=== PATIENT | female | born 1970 | race Caucasian/White ===

== ENCOUNTER 2016-09-18 11:06 | Emergency (ER) | payer BC ==
[~2016-09-18] VITALS: Ht 165.1 cm; Wt 72.6 kg
[~2016-09-18 11:06] MED LIST: ADVAIR 500/501 DISK IH; BIOTIN PLUS KE1 EACH PO; BUTALB-APAP-CA1 EACH PO; CELEXA10 MG; CELEXA40 MG PO; ESTRADIOL0.5 MG PO; Ecotrin PO; LEXAPRO10 MG PO; LISINOPRIL5 MG PO; MELATONIN5 M1 PO; METOPROLOL SUCC50 MG PO; MONTELUKAST SOD10 MG PO; MOTRIN600 MG PO; MULTIVITAMIN; NORCO 5/3251 TABLET PO; PRENATAL TABLE1 EAC3 PO; PROAIR HFA8.5 GM IH; SINGULAIR10 MG PO; VICODIN 5-3001 EACH PO; ZYRTEC10 M3 PO
[2016-09-18 11:48] LABS: HEMATOCRIT 36.5 % (36.0-46.0); MCH 30.4 PG (29.0-34.0); MCHC 35.6 G/DL (30.0-36.0); MCV 85.3 FL (83-99); MEAN PLAT.VOLUME 8.7 uM^3 (9.5-12.4); PLATELET COUNT 280 K/uL (156-360); RBC DIS.WIDTH-SD 36.3 % (39-53); RED BLOOD COUNT 4.28 M/uL (3.80-5.20)
[2016-09-18 12:16] LABS: ANION GAP 8 MEQ/L (2-14); CHLORIDE 104 MEQ/L (99-109); POTASSIUM 3.7 MEQ/L (3.7-5.4); SAMPLE HEMOLYSIS CHECK 0; SAMPLE ICTERIC CHECK 0; SAMPLE LIPEMIA CHECK 0; SODIUM 139 MEQ/L (136-147)
[2016-09-18 12:21] LABS: GFR ESTIMATE (CALCULATED) > 59 mL/min/; GLUCOSE 123 mg/dL (70-99); UREA NITROGEN (BUN) 13 mg/dL (9-23)
[2016-09-18 12:24] LABS: TROP-I INTERPRETATION NEGATIVE; TROPONIN-I < 0.01 ng/mL (0.0-0.30)
[2016-09-18 15:19] LABS: TROP-I INTERPRETATION NEGATIVE; TROPONIN-I < 0.01 ng/mL (0.0-0.30)
[2016-09-18 15:57] VITALS: BP 145/87
== END 2016-09-18 16:01 | disposition home or self-care (01) ==
LOC: EME 11:06
PROVIDERS: Physician Assistant
DX: R07.9 Chest pain, unspecified (principal); I10 Essential (primary) hypertension; Z88.0 Allergy status to penicillin; Z88.6 Allergy status to analgesic agent
CPT/HCPCS: 71020; 80048; 84484; 85027; 85379; 93005; 99281; 99284

== ENCOUNTER 2016-09-29 09:27 | Day surgery (SDC) | payer BC ==
[~2016-09-29] VITALS: Ht 165.1 cm; Wt 70.0 kg
[~2016-09-29 09:27] MED LIST changes: +ASPIRIN81 M2 PO; +HYZAAR 100-21 TABLET PO; +NITROSTAT0.4 MG SL
== END 2016-09-29 19:15 | disposition home or self-care (01) ==
LOC: CATH 09:27
DX: R07.89 Other chest pain (principal); I25.10 Atherosclerotic heart disease of native coronary artery without angina pectoris; I10 Essential (primary) hypertension; E11.9 Type 2 diabetes mellitus without complications; J45.909 Unspecified asthma, uncomplicated; E66.9 Obesity, unspecified; Z68.25 Body mass index [BMI] 25.0-25.9, adult; F41.9 Anxiety disorder, unspecified; Z82.49 Family history of ischemic heart disease and other diseases of the circulatory system; Z83.3 Family history of diabetes mellitus; Z80.1 Family history of malignant neoplasm of trachea, bronchus and lung; Z82.5 Family history of asthma and other chronic lower respiratory diseases; Z88.8 Allergy status to other drugs, medicaments and biological substances; Z88.0 Allergy status to penicillin; Z88.1 Allergy status to other antibiotic agents; Z88.5 Allergy status to narcotic agent
CPT/HCPCS: 85347; C1769; C1887; J0153; J1644; J2250; J3010; J7050

== ENCOUNTER 2016-12-31 10:30 | Observation (INO) | payer BC, OTHER ==
[~2016-12-31] VITALS: Ht 165.1 cm; Wt 77.6 kg
[2016-12-31 12:03] LABS: MCH 29.5 PG (29.0-34.0); MCHC 34.9 G/DL (30.0-36.0); MCV 84.6 FL (83-99); MEAN PLAT.VOLUME 8.7 uM^3 (9.5-12.4); PLATELET COUNT 276 K/uL (156-360); RBC DIS.WIDTH-CV 12.1 % (11.8-14.6); RBC DIS.WIDTH-SD 36.9 % (39-53); RED BLOOD COUNT 4.61 M/uL (3.80-5.20)
[2016-12-31 12:11] LABS: CHLORIDE 104 mEq/L (99-109); POTASSIUM 4.1 mEq/L (3.7-5.4); SODIUM 138 mEq/L (136-147)
[2016-12-31 12:13] LABS: GLUCOSE 114 mg/dL (70-99)
[2016-12-31 12:14] LABS: ANION GAP 10 MEQ/L (2-14)
[2016-12-31 12:16] LABS: GFR ESTIMATE (CALCULATED) > 59 mL/min/
[2016-12-31 12:17] LABS: UREA NITROGEN (BUN) 10 mg/dL (9-23)
[2016-12-31 12:23] LABS: D-DIMER ELISA 0.24 mg/L FEU (< 0.57)
[2016-12-31 12:34] LABS: TROP-I INTERPRETATION NEGATIVE; TROPONIN-I < 0.01 ng/mL (0.0-0.30)
[2016-12-31] MEDS ORDERED: LO-DOSE ASPIRIN81 M2 PO (14:37)
[2016-12-31] MEDS ORDERED: ONE-A-DAY ESSE1 EAC1 PO (14:37)
[2016-12-31] MEDS ORDERED: ADVIL,NUPRIN,M200 MG PO (14:37)
[2016-12-31] MEDS ORDERED: TRIBENZOR 40-11 EAC1 PO (14:38)
[2016-12-31] MEDS ORDERED: CRESTOR20 MG PO (14:38)
[2016-12-31] MEDS ORDERED: IMITREX50 MG PO (14:38)
[2016-12-31 16:55] VITALS: BP 179/97
[2016-12-31 18:21] LABS: TROP-I INTERPRETATION NEGATIVE; TROPONIN-I < 0.01 ng/mL (0.0-0.30)
[2016-12-31 20:00] VITALS: BP 126/68
[2016-12-31 23:57] VITALS: BP 116/71
[2017-01-01 01:47] LABS: TROP-I INTERPRETATION NEGATIVE; TROPONIN-I < 0.01 ng/mL (0.0-0.30)
[2017-01-01 03:30] VITALS: BP 122/74
[2017-01-01 07:05] LABS: MCH 29.8 PG (29.0-34.0); MCHC 34.1 G/DL (30.0-36.0); MCV 87.4 FL (83-99); MEAN PLAT.VOLUME 8.8 uM^3 (9.5-12.4); PLATELET COUNT 213 K/uL (156-360); RBC DIS.WIDTH-CV 12.4 % (11.8-14.6); RBC DIS.WIDTH-SD 39.3 % (39-53); RED BLOOD COUNT 3.89 M/uL (3.80-5.20); WHITE BLOOD COUNT 4.7 K/uL (4.1-10.2)
[2017-01-01 07:20] VITALS: BP 137/79
[2017-01-01 07:21] LABS: ANION GAP 9 MEQ/L (2-14); CHLORIDE 107 MEQ/L (99-109); GFR ESTIMATE (CALCULATED) > 59 mL/min/; GLUCOSE 107 mg/dL (70-99); HDL CHOLESTEROL 36 MG/DL (Desirable>=50); LDL CHOLESTEROL 148 mg/dL (Desirable<100); NON-HDL CHOLESTEROL 182 mg/dL (Desirable<160); POTASSIUM 3.8 MEQ/L (3.7-5.4); SAMPLE HEMOLYSIS CHECK 0; SAMPLE ICTERIC CHECK 0; SAMPLE LIPEMIA CHECK 0; SODIUM 140 MEQ/L (136-147); TOTAL CHOLESTEROL 218 mg/dL (Desirable<200); TRIGLYCERIDES 169 MG/DL (Normal: <150); UREA NITROGEN (BUN) 9 mg/dL (9-23)
[2017-01-01 07:22] LABS: Estimated Average Glucose 117 mg/dL (70-123); HEMOGLOBIN A1c (GLYCOHEMOGLOB) 5.7 % HGB (Below 5.7)
[2017-01-01 12:45] VITALS: BP 132/70
[2017-01-01 15:43] VITALS: BP 122/67
== END 2017-01-01 16:22 | disposition home or self-care (01) ==
LOC: EME 10:30 → EDOF 14:00 → 5WEST 14:00
PROVIDERS: Hospitalist; Internal Medicine; Physician Assistant
DX: R07.89 Other chest pain (principal); R20.0 Anesthesia of skin; E78.5 Hyperlipidemia, unspecified; K21.9 Gastro-esophageal reflux disease without esophagitis; Z79.82 Long term (current) use of aspirin; Z88.0 Allergy status to penicillin; I25.10 Atherosclerotic heart disease of native coronary artery without angina pectoris; I10 Essential (primary) hypertension; J45.909 Unspecified asthma, uncomplicated; F41.9 Anxiety disorder, unspecified; F32.9 Major depressive disorder, single episode, unspecified; R42 Dizziness and giddiness; R11.0 Nausea
CPT/HCPCS: 70450; 70551; 71020; 80048; 80061; 83036; 84484; 85027; 85379; 93005; 93306; 93880; 94640; 94640 76; 99202; 99281; 99285; G0378; J1644; J2270; J2405; J7030; J7040

== ENCOUNTER 2017-09-24 11:37 | Observation (INO) | payer BC ==
[~2017-09-24] VITALS: Ht 165.1 cm; Wt 78.3 kg
[~2017-09-24 11:37] MED LIST changes: +ADVIL,NUPRIN,M200 MG PO; +CRESTOR20 MG PO; +IMITREX50 MG PO; +LO-DOSE ASPIRIN81 M2 PO; +ONE-A-DAY ESSE1 EAC1 PO; +TRIBENZOR 40-11 EAC1 PO
[2017-09-24 12:07] LABS: HEMOGLOBIN 13.6 G/DL (11.9-15.5); MCH 31.3 PG (29.0-34.0); MCHC 36.8 G/DL (30.0-36.0); MCV 85.1 FL (83-99); PLATELET COUNT 260 K/uL (156-360); RBC DIS.WIDTH-CV 12.1 % (11.8-14.6); RBC DIS.WIDTH-SD 37.2 % (39-53); RED BLOOD COUNT 4.35 M/uL (3.80-5.20); WHITE BLOOD COUNT 6.6 K/uL (4.1-10.2)
[2017-09-24 12:19] LABS: CHLORIDE 99 mEq/L (99-109); POTASSIUM 3.7 mEq/L (3.7-5.4); SODIUM 140 mEq/L (136-147)
[2017-09-24 12:20] LABS: GLUCOSE 254 mg/dL (70-99)
[2017-09-24 12:24] LABS: CREATININE 0.8 mg/dL (0.6-1.3); GFR ESTIMATE (CALCULATED) > 59 mL/min/
[2017-09-24 12:25] LABS: UREA NITROGEN (BUN) 16 mg/dL (9-23)
[2017-09-24 12:29] LABS: TROP-I INTERPRETATION NEGATIVE; TROPONIN-I < 0.01 ng/mL (0.0-0.30)
[2017-09-24] MEDS ORDERED: CHLORTHALIDONE25 MG PO (17:59)
[2017-09-24] MEDS ORDERED: CYANOCOBALAM1000 MCG PO (17:59)
[2017-09-24 19:16] LABS: TROP-I INTERPRETATION NEGATIVE; TROPONIN-I < 0.01 ng/mL (0.0-0.30)
[2017-09-24 19:24] VITALS: BP 154/80
[2017-09-24 23:44] VITALS: BP 132/82
[2017-09-25 01:02] LABS: TROP-I INTERPRETATION NEGATIVE; TROPONIN-I < 0.01 ng/mL (0.0-0.30)
[2017-09-25 03:53] VITALS: BP 123/68
[2017-09-25 06:27] LABS: CHLORIDE 99 MEQ/L (99-109); CREATININE 0.7 MG/DL (0.6-1.3); GFR ESTIMATE (CALCULATED) > 59 mL/min/; GLUCOSE 143 mg/dL (70-99); POTASSIUM 3.3 MEQ/L (3.7-5.4); SODIUM 140 MEQ/L (136-147); UREA NITROGEN (BUN) 12 mg/dL (9-23)
[2017-09-25 08:22] VITALS: BP 136/79
[2017-09-25 10:10] LABS: HEMOGLOBIN A1c (GLYCOHEMOGLOB) 6.6 % (Below 5.7)
[2017-09-25 11:49] VITALS: BP 131/70
[2017-09-25 14:48] VITALS: BP 126/74
== END 2017-09-25 16:03 | disposition home or self-care (01) ==
LOC: EME 11:37 → RME 11:37 → EDOF 16:38 → 5WEST 16:38 → EDOF 16:38 → ENRESERV 16:43 → 5WEST 19:18
PROVIDERS: Internal Medicine
DX: R07.89 Other chest pain (principal); R00.0 Tachycardia, unspecified; R11.0 Nausea; R94.31 Abnormal electrocardiogram [ECG] [EKG]; R42 Dizziness and giddiness; I25.10 Atherosclerotic heart disease of native coronary artery without angina pectoris; I10 Essential (primary) hypertension; R73.03 Prediabetes; E78.5 Hyperlipidemia, unspecified; J45.909 Unspecified asthma, uncomplicated; F41.9 Anxiety disorder, unspecified; F32.9 Major depressive disorder, single episode, unspecified; Z90.49 Acquired absence of other specified parts of digestive tract; Z90.710 Acquired absence of both cervix and uterus; Z88.0 Allergy status to penicillin; Z88.1 Allergy status to other antibiotic agents; Z88.5 Allergy status to narcotic agent
CPT/HCPCS: 71046; 71275; 80048; 82948; 83036; 83880; 84484; 85027; 93005; 94640; 99281; 99285; G0378; J1650; J2270; J2405; J7030

== ENCOUNTER 2018-03-12 08:40 | Day surgery (SDC) | payer BC ==
[~2018-03-12] VITALS: Ht 165.1 cm; Wt 73.0 kg
[~2018-03-12 08:40] MED LIST changes: +CATAPRES-TTS 11 EACH TD; +CHLORTHALIDONE25 MG PO; +CYANOCOBALAM1000 MCG PO; +METFORMIN HCL500 M1 PO; +METOPROLOL SUC200 MG PO
== END 2018-03-12 17:15 | disposition home or self-care (01) ==
LOC: CATH 08:40
PROVIDERS: Internal Medicine Interventional Cardiology
PROC: 4A023N7 Measurement of Cardiac Sampling and Pressure, Left Heart, Percutaneous Approach (ICD-10-PCS; principal; 2018-03-12)
PROC: B2111ZZ Fluoroscopy of Multiple Coronary Arteries using Low Osmolar Contrast (ICD-10-PCS; principal; 2018-03-12)
PROC: B2151ZZ Fluoroscopy of Left Heart using Low Osmolar Contrast (ICD-10-PCS; principal; 2018-03-12)
PROC: B4161ZZ Fluoroscopy of Right Renal Artery using Low Osmolar Contrast (ICD-10-PCS; principal; 2018-03-12)
PROC: B4171ZZ Fluoroscopy of Left Renal Artery using Low Osmolar Contrast (ICD-10-PCS; principal; 2018-03-12)
DX: I25.119 Atherosclerotic heart disease of native coronary artery with unspecified angina pectoris (principal); I10 Essential (primary) hypertension; J45.909 Unspecified asthma, uncomplicated; F41.8 Other specified anxiety disorders; E11.9 Type 2 diabetes mellitus without complications; E78.2 Mixed hyperlipidemia; Z82.49 Family history of ischemic heart disease and other diseases of the circulatory system; Z79.82 Long term (current) use of aspirin; Z79.84 Long term (current) use of oral hypoglycemic drugs
CPT/HCPCS: 82948; C1769; C1887; J1644; J2250; J3010